=== PATIENT | female | born 1945 | race Caucasian/White ===

== ENCOUNTER 2021-05-05 16:23 | Emergency (ER) | payer MEDICARE, BC ==
--- NOTE | 2021-05-05 17:45 | EDM.PDOC ---
ED HPI GENERAL MEDICAL PROBLEM - General Chief Complaint: Neuro Symptoms/Deficits Stated Complaint: TROUBLE GETTING WORDS OUTS/LEG PAIN Time Seen by Provider: 05/05/21 17:24 Source of Information: Reports: Patient, Family (son), RN Notes Reviewed History Limitations: Reports: No Limitations - History of Present Illness INITIAL COMMENTS - FREE TEXT/NARRATIVE: Patient is a 76-year-old female who presents to the ER for the evaluation of her generalized confusion, and leg discomfort. Patient notes that for the last week or so, she has been having issues with trying to find words during conversation. She states that she lives alone, and was not necessarily aware this, until her niece come to visit, and noticed that her words were jumbled up a little bit. Patient does not think she has been around anyone has been sick again she states that she lives alone. Patient is not having any sort of fevers or chills, cough or shortness of breath, any sort of nausea/vomiting/diarrhea. At the time of triage, O2 sats on the low side of normal at 90 to 93% but she is not dyspneic by any means. Patient seems to know where she is at, and the time of the day and month. She is not having any urinary symptoms, again no fevers or chills that she is aware of. She is concerned about the possibility of having either stroke for other worsening etiology. The patient states that she has been having issue with bilateral swollen legs for some time as well, and these have been somewhat painful in the posterior aspect. States that her primary care provider is Candi Sellers. She was started on a new med recently, but she cannot member what the name of the med is. But she states she does not like it as it just makes her sleep. She did have a COVID-19 vaccine, sometime in November or December, and she got the [employer] version. - Related Data Allergies Allergy/AdvReac Type Severity Reaction Status Date / Time No Known Allergies Allergy Verified 05/05/21 16:57 Home Meds: Home Meds Cefdinir [Omnicef] 300 mg PO BID 7 Days #14 cap 05/05/21 [Rx] Diclofenac Sodium 75 mg PO BID 05/05/21 [History] Levothyroxine [Synthroid] 100 mcg PO ACBREAKFAST 05/05/21 [History] Metoprolol Succinate 25 mg PO BID 05/05/21 [History] lisinopriL [Lisinopril] 40 mg PO DAILY 05/05/21 [History] ED ROS GENERAL - Review of Systems Review Of Systems: Comprehensive ROS is negative, except as noted in HPI. ED EXAM, GENERAL - Physical Exam Exam: See Below Exam Limited By: No Limitations General Appearance: Alert, WD/WN, No Apparent Distress Eye Exam: Bilateral Eye: EOMI, Normal Inspection, PERRL Throat/Mouth: Normal Inspection, Normal Lips, Normal Teeth, Normal Gums, Normal Oropharynx, Normal Voice, No Airway Compromise Head: Atraumatic, Normocephalic Neck: Normal Inspection Respiratory/Chest: No Respiratory Distress, Lungs Clear, Normal Breath Sounds, No Accessory Muscle Use, Chest Non-Tender Cardiovascular: Normal Peripheral Pulses, Regular Rate, Rhythm, No Edema Peripheral Pulses: 2+: Radial (L), Radial (R) Extremities: Normal Inspection, Normal Capillary Refill Neurological: Alert, Oriented, Normal Cognition, No Motor/Sensory Deficits Psychiatric: Normal Affect, Normal Mood Skin Exam: Warm, Dry, Intact, Normal Color, No Rash #1 Interpretation EKG Date: 05/05/21 Time: 17:42 Rhythm: NSR Rate (Beats/Min): 54 [place]: LAD-Left [place] Deviation P-Wave: Present QRS: LBBB ST-T: Normal QT: Prolonged Comparison: No Change EKG Interpretation Comments: No obvious ischemia or acute ST changes noted, reviewed by myself and Dr. Marquez. Course - Vital Signs Last Recorded V/S: Last Vital Signs Temp 97 F 05/05/21 16:45 Pulse 65 05/05/21 16:45 Resp 16 05/05/21 16:45 BP 184/83 H 05/05/21 16:45 Pulse Ox 93 L 05/05/21 16:45 - Orders/Labs/Meds Orders: Active Orders 24 hr Category Date Time Status Head wo Cont [CT] Stat Exams 05/05/21 17:24 Ordered COVID-19/FLU A+B [MOLEC] Stat Lab 05/05/21 17:39 Ordered CULTURE URINE [MREF] Urgent Lab 05/05/21 19:01 Ordered cefTRIAXone [Rocephin] 2 gm Med 05/05/21 19:01 Ordered Sodium Chloride 0.9% [Normal Saline] 100 ml IV ONETIME Medication Orders Ceftriaxone Sodium 2 gm/ (Sodium Chloride) 100 mls @ 200 mls/hr IV ONETIME ONE Stop: 05/05/21 19:30 Last Admin: 05/05/21 19:15 Dose: 200 mls/hr Documented by: Labs: Laboratory Tests 05/05/21 05/05/21 05/05/21 Range/Units 17:49 17:49 17:49 WBC 6.24 (3.98-10.04) K/mm3 RBC 5.18 (3.98-5.22) M/mm3 Hgb 16.2 H (11.2-15.7) gm/dl Hct 47.2 H (34.1-44.9) % MCV 91.1 (79.4-94.8) fl MCH 31.3 (25.6-32.2) pg MCHC 34.3 (32.2-35.5) g/dl RDW Std Deviation 44.0 (36.4-46.3) fL Plt Count 238 (182-369) K/mm3 MPV 9.0 L (9.4-12.3) fl Neut % (Auto) 59.5 (34.0-71.1) % Lymph % (Auto) 28.0 (19.3-51.7) % [place] % (Auto) 10.4 (4.7-12.5) % Eos % (Auto) 1.9 (0.7-5.8) Baso % (Auto) 0.2 (0.1-1.2) % Neut # (Auto) 3.71 (1.56-6.13) K/mm3 Lymph # (Auto) 1.75 (1.18-3.74) K/mm3 [place] # (Auto) 0.65 H (0.24-0.36) K/mm3 Eos # (Auto) 0.12 (0.04-0.36) K/mm3 Baso # (Auto) 0.01 (0.01-0.08) K/mm3 PT 10.7 (9.7-12.0) SECONDS INR 1.00 APTT 27.9 (21.7-31.4) SECONDS Sodium 145 (136-145) mEq/L Potassium 4.0 (3.5-5.1) mEq/L Chloride 110 H (98-107) mEq/L Carbon Dioxide 27 (21-32) mEq/L Anion Gap 12.0 (5-15) BUN 22 H (7-18) mg/dL Creatinine 0.7 (0.55-1.02) mg/dL Est Cr Clr Drug Dosing 61.52 mL/min Estimated GFR (MDRD) > 60 (>60) mL/min BUN/Creatinine Ratio 31.4 H (14-18) Glucose 106 H (70-99) mg/dL Calcium 8.8 (8.5-10.1) mg/dL Magnesium 2.1 (1.8-2.4) mg/dL Total Bilirubin 0.7 (0.2-1.0) mg/dL AST 20 (15-37) U/L ALT 23 (14-59) U/L Alkaline Phosphatase 82 (46-116) U/L Troponin I < 0.017 (0.00-0.056) ng/mL NT-Pro-B Natriuret Pep (0-450) pg/mL Total Protein 6.6 (6.4-8.2) g/dl Albumin 3.5 (3.4-5.0) g/dl Globulin 3.1 gm/dL Albumin/Globulin Ratio 1.1 (1-2) TSH 3rd Generation (0.358-3.74) uIU/mL Urine Color (Yellow) Urine Appearance (Clear) Urine pH (5.0-8.0) Ur Specific [place] (1.005-1.030) Urine Protein (Negative) Urine Glucose (UA) (Negative) Urine Ketones (Negative) Urine Occult Blood (Negative) Urine Nitrite (Negative) Urine Bilirubin (Negative) Urine Urobilinogen (0.2-1.0) Ur Leukocyte Esterase (Negative) Urine RBC (0-5) /hpf Urine WBC (0-5) /hpf Ur Squamous Epith Cells (0-5) /hpf Urine Bacteria (FEW) /hpf Urine Mucus (FEW) /hpf SARS-CoV-2 RNA (CARLOS) (NEGATIVE) 05/05/21 05/05/21 05/05/21 Range/Units 17:49 17:49 17:53 WBC (3.98-10.04) K/mm3 RBC (3.98-5.22) M/mm3 Hgb (11.2-15.7) gm/dl Hct (34.1-44.9) % MCV (79.4-94.8) fl MCH (25.6-32.2) pg MCHC (32.2-35.5) g/dl RDW Std Deviation (36.4-46.3) fL Plt Count (182-369) K/mm3 MPV (9.4-12.3) fl Neut % (Auto) (34.0-71.1) % Lymph % (Auto) (19.3-51.7) % [place] % (Auto) (4.7-12.5) % Eos % (Auto) (0.7-5.8) Baso % (Auto) (0.1-1.2) % Neut # (Auto) (1.56-6.13) K/mm3 Lymph # (Auto) (1.18-3.74) K/mm3 [place] # (Auto) (0.24-0.36) K/mm3 Eos # (Auto) (0.04-0.36) K/mm3 Baso # (Auto) (0.01-0.08) K/mm3 PT (9.7-12.0) SECONDS INR APTT (21.7-31.4) SECONDS Sodium (136-145) mEq/L Potassium (3.5-5.1) mEq/L Chloride (98-107) mEq/L Carbon Dioxide (21-32) mEq/L Anion Gap (5-15) BUN (7-18) mg/dL Creatinine (0.55-1.02) mg/dL Est Cr Clr Drug Dosing mL/min Estimated GFR (MDRD) (>60) mL/min BUN/Creatinine Ratio (14-18) Glucose (70-99) mg/dL Calcium (8.5-10.1) mg/dL Magnesium (1.8-2.4) mg/dL Total Bilirubin (0.2-1.0) mg/dL AST (15-37) U/L ALT (14-59) U/L Alkaline Phosphatase (46-116) U/L Troponin I (0.00-0.056) ng/mL NT-Pro-B Natriuret Pep 427 (0-450) pg/mL Total Protein (6.4-8.2) g/dl Albumin (3.4-5.0) g/dl Globulin gm/dL Albumin/Globulin Ratio (1-2) TSH 3rd Generation 0.563 (0.358-3.74) uIU/mL Urine Color (Yellow) Urine Appearance (Clear) Urine pH (5.0-8.0) Ur Specific [place] (1.005-1.030) Urine Protein (Negative) Urine Glucose (UA) (Negative) Urine Ketones (Negative) Urine Occult Blood (Negative) Urine Nitrite (Negative) Urine Bilirubin (Negative) Urine Urobilinogen (0.2-1.0) Ur Leukocyte Esterase (Negative) Urine RBC (0-5) /hpf Urine WBC (0-5) /hpf Ur Squamous Epith Cells (0-5) /hpf Urine Bacteria (FEW) /hpf Urine Mucus (FEW) /hpf SARS-CoV-2 RNA (CARLOS) Negative (NEGATIVE) 05/05/21 Range/Units 18:28 WBC (3.98-10.04) K/mm3 RBC (3.98-5.22) M/mm3 Hgb (11.2-15.7) gm/dl Hct (34.1-44.9) % MCV (79.4-94.8) fl MCH (25.6-32.2) pg MCHC (32.2-35.5) g/dl RDW Std Deviation (36.4-46.3) fL Plt Count (182-369) K/mm3 MPV (9.4-12.3) fl Neut % (Auto) (34.0-71.1) % Lymph % (Auto) (19.3-51.7) % [place] % (Auto) (4.7-12.5) % Eos % (Auto) (0.7-5.8) Baso % (Auto) (0.1-1.2) % Neut # (Auto) (1.56-6.13) K/mm3 Lymph # (Auto) (1.18-3.74) K/mm3 [place] # (Auto) (0.24-0.36) K/mm3 Eos # (Auto) (0.04-0.36) K/mm3 Baso # (Auto) (0.01-0.08) K/mm3 PT (9.7-12.0) SECONDS INR APTT (21.7-31.4) SECONDS Sodium (136-145) mEq/L Potassium (3.5-5.1) mEq/L Chloride (98-107) mEq/L Carbon Dioxide (21-32) mEq/L Anion Gap (5-15) BUN (7-18) mg/dL Creatinine (0.55-1.02) mg/dL Est Cr Clr Drug Dosing mL/min Estimated GFR (MDRD) (>60) mL/min BUN/Creatinine Ratio (14-18) Glucose (70-99) mg/dL Calcium (8.5-10.1) mg/dL Magnesium (1.8-2.4) mg/dL Total Bilirubin (0.2-1.0) mg/dL AST (15-37) U/L ALT (14-59) U/L Alkaline Phosphatase (46-116) U/L Troponin I (0.00-0.056) ng/mL NT-Pro-B Natriuret Pep (0-450) pg/mL Total Protein (6.4-8.2) g/dl Albumin (3.4-5.0) g/dl Globulin gm/dL Albumin/Globulin Ratio (1-2) TSH 3rd Generation (0.358-3.74) uIU/mL Urine Color Yellow (Yellow) Urine Appearance Slt cloudy H (Clear) Urine pH 6.0 (5.0-8.0) Ur Specific [place] > or = 1.030 (1.005-1.030) Urine Protein Negative (Negative) Urine Glucose (UA) Negative (Negative) Urine Ketones 2+ H (Negative) Urine Occult Blood Negative (Negative) Urine Nitrite Negative (Negative) Urine Bilirubin 1+ H (Negative) Urine Urobilinogen 4.0 H (0.2-1.0) Ur Leukocyte Esterase 1+ H (Negative) Urine RBC 0-5 (0-5) /hpf Urine WBC 20-30 H (0-5) /hpf Ur Squamous Epith Cells 10-20 H (0-5) /hpf Urine Bacteria Moderate H (FEW) /hpf Urine Mucus Moderate H (FEW) /hpf SARS-CoV-2 RNA (CARLOS) (NEGATIVE) Meds: Medications Generic Name Dose Route Start Last Admin Trade Name Freq PRN Reason Stop Dose Admin Ceftriaxone Sodium 2 gm/ 100 mls @ 200 mls/hr 05/05/21 19:01 05/05/21 19:15 Sodium Chloride IV 05/05/21 19:30 200 mls/hr ONETIME ONE Administration - Re-Assessments/Exams Free Text/Narrative Re-Assessment/Exam: 05/05/21 17:44 Patient presents to the ER for the evaluation of her increased confusion and leg pain. She has a multitude of symptoms that are pretty nonfocal. We will go ahead get a head CT without contrast for evaluation of a possible stroke earlier this week. We will get basic labs, EKG, and a Covid swab for ongoing management. 05/05/21 19:[address] demonstrates normal degenerative change but no sign of a stroke. Laboratory evaluation demonstrates a urinalysis that is positive for UTI at this time, we will go ahead and give her 2 g Rocephin, and started on some oral Omnicef for ongoing management. White cell count, and metabolic panel is essentially unremarkable. COVID-19 screen was negative. Departure - Departure Time of Disposition: 19:22 Disposition: Home, Self-Care 01 Condition: Good Clinical Impression: UTI (urinary tract infection) Qualifiers: Urinary tract infection type: acute cystitis Hematuria presence: without hematuria Qualified Code(s): N30.00 - Acute cystitis without hematuria - Discharge Information *PRESCRIPTION DRUG MONITORING PROGRAM REVIEWED*: No *COPY OF PRESCRIPTION DRUG MONITORING REPORT IN PATIENT GAEL: No Prescriptions: Cefdinir [Omnicef] 300 mg PO BID 7 Days #14 cap Instructions: Urinary Tract Infection, Adult, [id number] Referrals: Candi Sellers NP [Primary Care Provider] - Forms: ED Department Discharge Additional Instructions: You have been evaluated in the ED for your urinary symptoms. Your urinalysis was consistent with an acute urinary tract infection. Your urine was sent for culture, and you will be notified if you should need a change in your antibiotic. This may take up to 48 hours to result. You have been given a prescription for Omnicef (cefdinir), 300 mg 1 tablet 2 times a day for 7 days. Please note that the antibiotics can take up to 48 hours to start working. This medication was electronically sent to the [facility] pharmacy located on [place]. You were given your first dose of IV antibiotic in the ER, to help start fighting off the UTI symptoms. Please increase your oral fluid intake and try to stay adequately hydrated. Please return to the ED if your symptoms change or worsen. Sepsis Event Note (ED) - Focused Exam Vital Signs: Vital Signs Temp Pulse Resp BP Pulse Ox 05/05/21 16:45 97 F 65 16 184/83 H 93 L - My Orders Last 24 Hours: My Active Orders 05/05/21 17:24 Head wo Cont [CT] Stat 05/05/21 17:39 COVID-19/FLU A+B [MOLEC] Stat 05/05/21 19:01 CULTURE URINE [MREF] Urgent cefTRIAXone [Rocephin] 2 gm Sodium Chloride 0.9% [Normal Saline] 100 ml IV ONETIME - Assessment/Plan Last 24 Hours: My Active Orders 05/05/21 17:24 Head wo Cont [CT] Stat 05/05/21 17:39 COVID-19/FLU A+B [MOLEC] Stat 05/05/21 19:01 CULTURE URINE [MREF] Urgent cefTRIAXone [Rocephin] 2 gm Sodium Chloride 0.9% [Normal Saline] 100 ml IV ONETIME
[2021-05-05 18:50] LABS: CORONAVIRUS COVID-19 NAA NEGATIVE (NEGATIVE)
[2021-05-05] MEDS ORDERED: cefTRIAXone 2 GM in Sodium Chloride 0.9% 100 ML IV ONE (19:01)
--- NOTE | 2021-05-05 20:14 | CT ---
Head CT Technique: Multiple axial sections through the brain were obtained. Intravenous contrast was not utilized. Reconstructed coronal and sagittal images were obtained. Comparison: No prior intracranial imaging is available. Findings: Ventricles along with basal cisterns and sulci over the convexities are moderately prominent. Very minimal diminished density is seen within portions of the periventricular white matter compatible with small vessel ischemic demyelination change. Atrophy is also noted within the cerebellum. No midline shift or mass-effect is seen. Mild atherosclerotic calcification is seen within the carotid siphon. Visualized mastoid sinuses and paranasal sinuses show nothing acute. No acute calvarial abnormality is seen. Impression: 1. Senescent change as noted above. 2. No acute intracranial abnormality is seen. Diagnostic code #2 I agree with preliminary report from [facility], finalized on 05/05/21, 7:38 PM CDT, code 1
== END 2021-05-05 20:16 | disposition home or self-care (01) ==
LOC: JD.ED 16:23
DX: N30.00 Acute cystitis without hematuria (principal); I44.7 Left bundle-branch block, unspecified; Z79.899 Other long term (current) drug therapy; Z20.822 Contact with and (suspected) exposure to COVID-19; M79.606 Pain in leg, unspecified
CPT/HCPCS: 0240U; 36415; 70450; 80053; 81001; 83735; 83880; 84443; 84484; 85025; 85610; 85730; 87086; 93005; 96365; 99285; J0696; 93010; 99284

== ENCOUNTER 2021-12-03 19:35 | Inpatient (IN) | payer MEDICARE, BC ==
[2021-12-03] MEDS ORDERED: Adenosine 6 MG/2 ML SDV ONE (19:49)
[2021-12-03] MEDS ORDERED: Adenosine 6 MG/2 ML SDV IVPUSH ONE ×2 (19:59→20:01)
[2021-12-03] MEDS ORDERED: Diltiazem 50 MG/10 ML SDV ONE (20:02)
[2021-12-03] MEDS ORDERED: Lactated Ringers 1,000 ML IV ONE (20:03)
[2021-12-03] MEDS ORDERED: Aspirin 81 MG Tab.Chew PO ONE (20:05)
[2021-12-03] MEDS ORDERED: Diltiazem 50 MG/10 ML SDV IVPUSH ONE (20:05)
[2021-12-03] MEDS: Adenosine 12 MG/4 ML SDV ONE ×2 (20:11→20:12)
[2021-12-03] MEDS: Diltiazem 100 MG in Sodium Chloride 0.9% 100 ML IV SCH (20:25)
[2021-12-03] MEDS ORDERED: Potassium Chloride 20 MEQ Tab.ER PO ONE (22:49)
[2021-12-03] MEDS ORDERED: Magnesium Sulfate/Water 2 GM in Premix Bag 1 BAG IV ONE (22:49)
[2021-12-03] MEDS ORDERED: Metoprolol Tartrate 25 MG Tab PO ONE (22:50)
[2021-12-04] MEDS: Diltiazem 100 MG in Sodium Chloride 0.9% 100 ML IV SCH ×2 (00:42→02:23)
[2021-12-04] MEDS ORDERED: Acetaminophen 325 MG Tab PO PRN (01:21)
[2021-12-04] MEDS ORDERED: Potassium Bicarbonate/Cit Ac 20 MEQ Effervescent Tab PO SCH (01:45)
[2021-12-04] MEDS: Dextrose 5%-0.45% NaCl 1,000 ML IV SCH ×2 (02:02→16:40)
[2021-12-04 03:17] LABS: HEMOGLOBIN A1C 5.2 %
[2021-12-04] MEDS: Levothyroxine 100 MCG Tab PO SCH (06:32)
[2021-12-04] MEDS: Enoxaparin 40 MG/0.4 ML Syringe SUBCUT SCH (09:48)
[2021-12-04] MEDS: oxyCODONE 5 MG Tab PO PRN (20:40)
[2021-12-04] MEDS: Simvastatin 20 MG Tab PO SCH (20:40)
[2021-12-05] MEDS: Levothyroxine 100 MCG Tab PO SCH (05:44)
[2021-12-05] MEDS: Enoxaparin 40 MG/0.4 ML Syringe SUBCUT SCH (07:59)
[2021-12-05] MEDS: Diltiazem 100 MG in Sodium Chloride 0.9% 100 ML IV SCH (09:05)
[2021-12-05] MEDS ORDERED: Adenosine 6 MG/2 ML SDV IVPUSH ONE ×2 (09:19→09:31)
[2021-12-05] MEDS ORDERED: Midazolam 1 MG/ML 2 ML SDV ONE (10:08)
[2021-12-05] MEDS ORDERED: fentaNYL 100 MCG/2 ML SDV ONE (10:09)
[2021-12-05] MEDS ORDERED: Sodium Chloride 0.9% 500 ML ONE (10:15)
[2021-12-05] MEDS ORDERED: Ketamine 500 mg/10 ML MDV ONE (11:00)
[2021-12-05] MEDS: Labetalol 100 MG/20 ML MDV IVPUSH PRN ×2 (16:44→21:00)
[2021-12-05] MEDS: oxyCODONE 5 MG Tab PO PRN (21:04)
[2021-12-05] MEDS: Simvastatin 20 MG Tab PO SCH (21:04)
[2021-12-06] MEDS: Labetalol 100 MG/20 ML MDV IVPUSH PRN (01:11)
[2021-12-06] MEDS: oxyCODONE 5 MG Tab PO PRN ×2 (03:14→20:31)
[2021-12-06] MEDS: Levothyroxine 100 MCG Tab PO SCH (06:28)
[2021-12-06] MEDS: Enoxaparin 40 MG/0.4 ML Syringe SUBCUT SCH (08:03)
[2021-12-06] MEDS ORDERED: Metoprolol Succinate 25 MG Tab.ER PO SCH (09:00)
[2021-12-06] MEDS ORDERED: Sodium Chloride 0.9% 500 ML IV ONE (12:26)
[2021-12-06] MEDS ORDERED: Sodium Chloride 0.9% 1,000 ML ONE (12:28)
[2021-12-06] MEDS: Simvastatin 20 MG Tab PO SCH (20:30)
[2021-12-07] MEDS: Levothyroxine 100 MCG Tab PO SCH (05:46)
[2021-12-07] MEDS ORDERED: Labetalol 100 MG/20 ML MDV IVPUSH ONE (08:34)
[2021-12-07] MEDS: Enoxaparin 40 MG/0.4 ML Syringe SUBCUT SCH (08:46)
[2021-12-07] MEDS ORDERED: Metoprolol Succinate 25 MG Tab.ER PO ONE (11:00)
[2021-12-07] MEDS: Amiodarone 200 MG Tab PO SCH (15:43)
[2021-12-07 16:18] LABS: HEMOGLOBIN A1C 5.4 %
[2021-12-07] MEDS: Simvastatin 20 MG Tab PO SCH (20:14)
[2021-12-07] MEDS: Potassium Chloride 20 MEQ Tab.ER PO SCH (20:14)
[2021-12-07] MEDS: oxyCODONE 5 MG Tab PO PRN (21:26)
[2021-12-08] MEDS: Levothyroxine 100 MCG Tab PO SCH (05:13)
[2021-12-08] MEDS ORDERED: Rivaroxaban 10 MG Tab PO SCH ×2 (09:00)
[2021-12-08] MEDS ORDERED: Metoprolol Tartrate 25 MG Tab PO SCH (09:00)
[2021-12-08] MEDS: Potassium Chloride 20 MEQ Tab.ER PO SCH (09:27)
[2021-12-08] MEDS: Amiodarone 200 MG Tab PO SCH (09:27)
== END 2021-12-08 16:28 | disposition home health service (06) | DRG 310 ==
LOC: JD.ED 19:35 → JD.ICU 12-04 00:08
PROVIDERS: ADMIT Pediatrics; ATTEND Pediatrics
DX: I63.81 Other cerebral infarction due to occlusion or stenosis of small artery (principal); I48.91 Unspecified atrial fibrillation; I44.7 Left bundle-branch block, unspecified; I49.3 Ventricular premature depolarization; Z66 Do not resuscitate; E87.6 Hypokalemia; Z79.82 Long term (current) use of aspirin; G89.29 Other chronic pain; M54.9 Dorsalgia, unspecified; G47.00 Insomnia, unspecified; R77.8 Other specified abnormalities of plasma proteins; E66.9 Obesity, unspecified; E78.00 Pure hypercholesterolemia, unspecified; I10 Essential (primary) hypertension; E03.9 Hypothyroidism, unspecified; M54.59 Other low back pain; Z79.899 Other long term (current) drug therapy; Z79.890 Hormone replacement therapy; Z79.01 Long term (current) use of anticoagulants; Z98.49 Cataract extraction status, unspecified eye; W19.XXXA Unspecified fall, initial encounter; Y92.009 Unspecified place in unspecified non-institutional (private) residence as the place of occurrence of the external cause
CPT/HCPCS: 36415; 70450; 71045; 80053; 83735; 84443; 84484 ×2; 85025; 85379; 85610; 85730; 93005 ×3; A9270 ×3; J0153; J3475; J3490 ×2; J7120; 51701; 51702; 51798; 70551; 70551-26; 80048; 80061; 81001; 82947; 83036; 83880; 84550; 85652; 86140; 87040; 87086; 93010; 93306; 96365; 96366; 96375; 96376; 97110-GP; 97116-GP; 97161-GP; 97530-GP; 99285; 99285-25; J0282; J1650; J2250; J7030; J7040; J7042

== ENCOUNTER 2022-03-19 11:00 | Inpatient (IN) | payer MEDICARE, BC ==
[2022-03-19] MEDS: Sodium Chloride 0.9% 10 ML Syringe FLUSH PRN ×2 (13:13→20:55)
[2022-03-19 14:23] LABS: CORONAVIRUS COVID-19 NAA POSITIVE (NEGATIVE)
[2022-03-19] MEDS ORDERED: Furosemide 40 MG/4 ML VIAL IVPUSH ONE (15:29)
[2022-03-19] MEDS ORDERED: Dexamethasone 10 MG/ML SDV IVPUSH ONE (15:38)
[2022-03-19] MEDS ORDERED: cefTRIAXone 2 GM in Sodium Chloride 0.9% 100 ML IV ONE (15:42)
[2022-03-19] MEDS ORDERED: Furosemide 40 MG/4 ML VIAL ONE (17:48)
[2022-03-19] MEDS ORDERED: Dexamethasone 4 MG/ML SDV ONE (17:48)
[2022-03-19] MEDS ORDERED: Albuterol 0.042% 1.25 MG/3 ML Neb Soln NEB PRN (18:48)
[2022-03-19] MEDS ORDERED: Acetaminophen 325 MG Tab PO PRN (18:51)
[2022-03-19] MEDS: Albuterol/Ipratropium 3.0-0.5 MG/3 ML Neb Soln NEB SCH (20:03)
[2022-03-19] MEDS: Azithromycin 500 MG in Sodium Chloride 0.9% 250 ML IV SCH (20:56)
[2022-03-19] MEDS: Pantoprazole 40 MG Tab.CR PO SCH (21:00)
[2022-03-19] MEDS: Naproxen 500 MG Tab PO SCH (21:00)
[2022-03-19] MEDS ORDERED: Doxycycline 100 MG in Sodium Chloride 0.9% 100 ML IV SCH (21:00)
[2022-03-19] MEDS: guaiFENesin 600 MG Tab.ER PO SCH (21:00)
[2022-03-19] MEDS: Rivaroxaban 10 MG Tab PO SCH (21:01)
[2022-03-19] MEDS: Metoprolol Tartrate 25 MG Tab PO SCH (21:02)
[2022-03-20] MEDS: Levothyroxine 100 MCG Tab PO SCH (05:19)
[2022-03-20] MEDS: Albuterol/Ipratropium 3.0-0.5 MG/3 ML Neb Soln NEB SCH ×3 (06:19→20:48)
[2022-03-20] MEDS: Dexamethasone 4 MG Tab PO SCH (10:28)
[2022-03-20] MEDS: Rivaroxaban 10 MG Tab PO SCH (10:28)
[2022-03-20] MEDS: Naproxen 500 MG Tab PO SCH ×2 (10:28→20:45)
[2022-03-20] MEDS: Amiodarone 200 MG Tab PO SCH (10:28)
[2022-03-20] MEDS: guaiFENesin 600 MG Tab.ER PO SCH ×2 (10:28→20:45)
[2022-03-20] MEDS: Metoprolol Tartrate 25 MG Tab PO SCH ×2 (10:29→20:46)
[2022-03-20] MEDS ORDERED: cefTRIAXone 2 GM in Sodium Chloride 0.9% 100 ML IV SCH (15:00)
[2022-03-20] MEDS: cefTRIAXone 2 GM in Sodium Chloride 0.9% 100 ML IV SCH (15:23)
[2022-03-20] MEDS: Pantoprazole 40 MG Tab.CR PO SCH (20:46)
[2022-03-20] MEDS: Azithromycin 500 MG in Sodium Chloride 0.9% 250 ML IV SCH (20:50)
[2022-03-20] MEDS: Sodium Chloride 0.9% 10 ML Syringe FLUSH PRN (20:51)
[2022-03-21] MEDS: Levothyroxine 100 MCG Tab PO SCH (05:38)
[2022-03-21] MEDS: Albuterol/Ipratropium 3.0-0.5 MG/3 ML Neb Soln NEB SCH ×3 (06:15→20:29)
[2022-03-21] MEDS: Amiodarone 200 MG Tab PO SCH (09:58)
[2022-03-21] MEDS: Naproxen 500 MG Tab PO SCH ×2 (09:58→21:03)
[2022-03-21] MEDS: Multivitamin Tab PO SCH (09:59)
[2022-03-21] MEDS: Rivaroxaban 10 MG Tab PO SCH (09:59)
[2022-03-21] MEDS: guaiFENesin 600 MG Tab.ER PO SCH ×2 (09:59→21:03)
[2022-03-21] MEDS: Metoprolol Tartrate 25 MG Tab PO SCH ×2 (10:00→21:03)
[2022-03-21] MEDS: Fluticasone NASAL Spray 16 GM Bottle NASBOTH SCH (10:01)
[2022-03-21] MEDS: Dexamethasone 4 MG Tab PO SCH (10:01)
[2022-03-21] MEDS: cefTRIAXone 2 GM in Sodium Chloride 0.9% 100 ML IV SCH (15:10)
[2022-03-21] MEDS: Azithromycin 500 MG in Sodium Chloride 0.9% 250 ML IV SCH (21:02)
[2022-03-21] MEDS: Pantoprazole 40 MG Tab.CR PO SCH (21:03)
[2022-03-22] MEDS: Albuterol/Ipratropium 3.0-0.5 MG/3 ML Neb Soln NEB SCH ×3 (06:17→20:36)
[2022-03-22] MEDS: Levothyroxine 100 MCG Tab PO SCH (06:18)
[2022-03-22] MEDS: Amiodarone 200 MG Tab PO SCH (08:15)
[2022-03-22] MEDS: Dexamethasone 4 MG Tab PO SCH (08:16)
[2022-03-22] MEDS: guaiFENesin 600 MG Tab.ER PO SCH ×2 (08:16→21:23)
[2022-03-22] MEDS: Multivitamin Tab PO SCH (08:17)
[2022-03-22] MEDS: Metoprolol Tartrate 25 MG Tab PO SCH ×2 (08:17→21:23)
[2022-03-22] MEDS: Rivaroxaban 10 MG Tab PO SCH (08:18)
[2022-03-22] MEDS: Fluticasone NASAL Spray 16 GM Bottle NASBOTH SCH (08:55)
[2022-03-22] MEDS: Naproxen 500 MG Tab PO PRN ×2 (11:15→22:47)
[2022-03-22] MEDS: cefTRIAXone 2 GM in Sodium Chloride 0.9% 100 ML IV SCH (15:31)
[2022-03-22] MEDS ORDERED: Sertraline 25 MG Tab PO SCH (21:00)
[2022-03-22] MEDS: Pantoprazole 40 MG Tab.CR PO SCH (21:23)
[2022-03-22] MEDS: Azithromycin 500 MG in Sodium Chloride 0.9% 250 ML IV SCH (21:29)
[2022-03-23] MEDS: Albuterol/Ipratropium 3.0-0.5 MG/3 ML Neb Soln NEB SCH ×2 (05:59→15:09)
[2022-03-23] MEDS: Levothyroxine 100 MCG Tab PO SCH (06:25)
[2022-03-23] MEDS: Amiodarone 200 MG Tab PO SCH (09:37)
[2022-03-23] MEDS: Multivitamin Tab PO SCH (09:37)
[2022-03-23] MEDS: guaiFENesin 600 MG Tab.ER PO SCH (09:37)
[2022-03-23] MEDS: Rivaroxaban 10 MG Tab PO SCH (09:37)
[2022-03-23] MEDS: Dexamethasone 4 MG Tab PO SCH (09:38)
[2022-03-23] MEDS: Fluticasone NASAL Spray 16 GM Bottle NASBOTH SCH (09:39)
[2022-03-23] MEDS: Metoprolol Tartrate 25 MG Tab PO SCH (09:41)
[2022-03-23] MEDS: cefTRIAXone 2 GM in Sodium Chloride 0.9% 100 ML IV SCH (14:48)
[2022-03-24] MEDS ORDERED: Metoprolol Tartrate 25 MG Tab PO SCH (09:00)
[2022-03-24] MEDS ORDERED: Rivaroxaban 10 MG Tab PO SCH (09:00)
== END 2022-03-23 15:32 | disposition home or self-care (01) | DRG 177 ==
LOC: JD.ED 11:00 → JD.ICU 18:02
PROVIDERS: ADMIT Internal Medicine Cardiovascular Disease; ATTEND Pediatrics
PROC: 8E0ZXY6 Isolation (ICD-10-PCS; principal; 2022-03-19)
PROC: 3E0333Z Introduction of Anti-inflammatory into Peripheral Vein, Percutaneous Approach (ICD-10-PCS; principal; 2022-03-19)
DX: U07.1 COVID-19 (principal); I63.81 Other cerebral infarction due to occlusion or stenosis of small artery; J15.7 Pneumonia due to Mycoplasma pneumoniae; I10 Essential (primary) hypertension; J12.82 Pneumonia due to coronavirus disease 2019; E78.00 Pure hypercholesterolemia, unspecified; J96.01 Acute respiratory failure with hypoxia; Z79.890 Hormone replacement therapy; N30.00 Acute cystitis without hematuria; J44.0 Chronic obstructive pulmonary disease with (acute) lower respiratory infection; I50.32 Chronic diastolic (congestive) heart failure; E78.5 Hyperlipidemia, unspecified; I48.0 Paroxysmal atrial fibrillation; R77.8 Other specified abnormalities of plasma proteins; I11.0 Hypertensive heart disease with heart failure; F41.9 Anxiety disorder, unspecified; E03.9 Hypothyroidism, unspecified; I48.91 Unspecified atrial fibrillation; Z79.899 Other long term (current) drug therapy; Z79.52 Long term (current) use of systemic steroids; Z79.1 Long term (current) use of non-steroidal anti-inflammatories (NSAID); Z98.42 Cataract extraction status, left eye; Z98.41 Cataract extraction status, right eye; Z79.01 Long term (current) use of anticoagulants
CPT/HCPCS: 0240U; 36415; 71045; 71046; 80048; 80053; 81001; 83605; 83735; 83880; 84145; 84484; 85007; 85025; 85027; 86140; 86738; 87040; 92523; 93005; 93306; 94640; 96374; 96375; 99285; 93010; 99284; A9270-GY; J0456; J0696; J1100; J1940; J3490; J7050; J7620-GY; J8540

== ENCOUNTER 2023-05-25 00:26 | Inpatient (IN) | payer MEDICARE, BC ==
[2023-05-25 01:39] LABS: HEMATOCRIT 45.1 % (37.0-47.0); HEMOGLOBIN 15.7 gm/dl (12.0-16.0); MEAN CORPUSCULAR HEMOGLOBIN 33.8 pg (28.0-32.0); MEAN CORPUSCULAR HGB CONC 34.8 g/dl (32.0-36.0); MEAN PLATELET VOLUME 9.1 fl (9.4-12.3); PLATELET COUNT,PLT 226 K/mm3 (150-400); RED BLOOD CELL COUNT 4.65 M/mm3 (4.10-5.30); WHITE BLOOD CELL COUNT,WBC 9.64 K/mm3 (3.9-11.3)
[2023-05-25 02:22] LABS: A/G RATIO 0.9 (1-2); ALANINE AMINOTRANSFERASE,ALT 15 U/L (14-59); ALBUMIN 3.2 g/dl (3.4-5.0); ALKALINE PHOSPHATASE 80 U/L (46-116); ANION GAP 11.1 (5-15); ASPARTATE AMNIOTRANSFERASE,AST 25 U/L (15-37); BILIRUBIN TOTAL 1.6 mg/dL (0.2-1.0); BLOOD UREA NITROGEN,BUN 20 mg/dL (7-18); BUN/CREATININE RATIO 22.2 (14-18); CARBON DIOXIDE,CO2 29 mEq/L (21-32); CHLORIDE,CL 105 mEq/L (98-107); CREATININE 0.9 mg/dL (0.55-1.02); ESTIMATED GFR 65 mL/min (>60); GLUCOSE RANDOM 147 mg/dL (70-99); POTASSIUM,K 4.1 mEq/L (3.5-5.1); PROTEIN TOTAL,TP 6.8 g/dl (6.4-8.2); SODIUM,NA 141 mEq/L (136-145); TROPONIN I HIGH SENSITIVITY 23 pg/mL (<=51)
[2023-05-25 02:38] LABS: BAND PERCENT MAN 6 % (0-10); BASOPHILS PERCENT MAN 0 (0.1-1.2); EOSINOPHILS PERCENT MAN 0 % (0.7-5.8); LYMPHOCYTES % ATYPICAL MANUAL 0 %; LYMPHOCYTES PERCENT MAN 8 % (20-40); MONOCYTES PERCENT MAN 11 % (2-10)
[2023-05-25 02:40] LABS: PLATELET COUNT ESTIMATE ADEQUATE
[2023-05-25 02:47] LABS: C-REACTIVE PROTEIN 20.1 mg/dL (<1.0)
[2023-05-25 07:25] LABS: APPEARANCE,URINE CLEAR (Clear); BILIRUBIN,URINE NEGATIVE (Negative); COLOR,URINE DARK YELLOW (Yellow); GLUCOSE,URINE NEGATIVE (Negative); KETONES,URINE 2+ (Negative); LEUKOCYTE ESTERASE,URINE NEGATIVE (Negative); NITRITE,URINE NEGATIVE (Negative); OCCULT BLOOD,URINE NEGATIVE (Negative); PH,URINE 5.5 (5.0-8.0); PROTEIN,URINE TRACE (Negative); UROBILINOGEN,URINE 0.2 (0.2-1.0)
[2023-05-25 07:31] LABS: BACTERIA,URINE FEW /hpf (FEW); MUCUS,URINE MODERATE /hpf (FEW); RBC,URINE 0-5 /hpf (0-5); WBC,URINE 0-5 /hpf (0-5)
[2023-05-25] MEDS ORDERED: Levothyroxine 100 MCG Tab PO SCH (09:00)
[2023-05-25] MEDS ORDERED: Ondansetron 4 MG/2 ML SDV IV PRN (10:08)
[2023-05-25] MEDS ORDERED: Docusate Sodium 100 MG Cap PO PRN (10:08)
[2023-05-25] MEDS ORDERED: oxyCODONE 5 MG Tab PO PRN (10:08)
[2023-05-25] MEDS ORDERED: Albuterol 0.083% 2.5 MG/3 ML Neb Soln NEB PRN (10:08)
[2023-05-25] MEDS ORDERED: Sodium Chloride 0.9% 10 ML Syringe FLUSH PRN (10:08)
[2023-05-25] MEDS ORDERED: Albuterol/Ipratropium 3.0-0.5 MG/3 ML Neb Soln NEB PRN (10:08)
[2023-05-25] MEDS ORDERED: Amiodarone 200 MG Tab PO SCH (10:15)
[2023-05-25] MEDS ORDERED: Lisinopril 20 MG Tab PO SCH (10:15)
[2023-05-25] MEDS ORDERED: Metoprolol Tartrate 25 MG Tab PO SCH ×2 (10:15→11:45)
[2023-05-25] MEDS ORDERED: Rivaroxaban 10 MG Tab PO SCH (10:15)
[2023-05-25] MEDS ORDERED: Amiodarone 200 MG Tab **PTOM PO SCH (11:45)
[2023-05-25] MEDS ORDERED: LISINOPRIL 40 MG PO SCH (11:45)
[2023-05-25] MEDS: Metoprolol Tartrate 25 MG Tab **PTOM PO SCH ×2 (12:12→21:10)
[2023-05-25] MEDS ORDERED: XARELTO 20 MG PO SCH (18:00)
[2023-05-25 19:42] LABS: BORDETELLA PARAPERT IS1001 Not Detected (Not Detected)
[2023-05-25] MEDS ORDERED: SIMVASTATIN 20 MG PO SCH (21:00)
[2023-05-25] MEDS ORDERED: atorvaSTATin 20 MG Tab PO SCH (21:00)
[2023-05-25] MEDS: Sodium Chloride 0.9% 10 ML Syringe FLUSH SCH (21:11)
[2023-05-26] MEDS ORDERED: Levothyroxine 100 MCG Tab PO SCH (06:00)
[2023-05-26] MEDS ORDERED: Levothyroxine 25 MCG Tab PO SCH (06:00)
[2023-05-26] MEDS ORDERED: methylPREDNISolone Sodium Succinate 125 MG/2 ML SDV IVPUSH ONE (08:11)
[2023-05-26] MEDS ORDERED: Lisinopril 20 MG Tab PO SCH (08:34)
[2023-05-26] MEDS: amLODIPine 5 MG Tab PO SCH (08:59)
[2023-05-26] MEDS: Levothyroxine 100 MCG Tab PO SCH (08:59)
[2023-05-26] MEDS: Amiodarone 200 MG Tab PO SCH (09:00)
[2023-05-26] MEDS ORDERED: amLODIPine 5 MG Tab **PTOM PO SCH (09:00)
[2023-05-26] MEDS ORDERED: amLODIPine 5 MG Tab PO SCH (09:00)
[2023-05-26] MEDS: Metoprolol Tartrate 25 MG Tab PO SCH ×2 (09:01→20:48)
[2023-05-26] MEDS: Lisinopril 20 MG Tab PO SCH (09:02)
[2023-05-26] MEDS: Doxycycline 100 MG in Sodium Chloride 0.9% 100 ML IV SCH ×2 (09:08→20:49)
[2023-05-26] MEDS: Sodium Chloride 0.9% 10 ML Syringe FLUSH SCH ×2 (09:13→22:00)
[2023-05-26] MEDS: Rivaroxaban 10 MG Tab PO SCH (17:41)
[2023-05-26] MEDS: atorvaSTATin 20 MG Tab PO SCH (20:49)
[2023-05-27 05:33] LABS: BASOPHILS PERCENT AUTO 0.1 % (0.0-1.0); HEMATOCRIT 42.1 % (37.0-47.0); HEMOGLOBIN 14.7 gm/dl (12.0-16.0); IMMATURE GRAN ABSOLUTE AUTO 0.07 K/mm3 (0.00-0.05); IMMATURE GRAN PERCENT AUTO 0.8 % (0.0-0.4); LYMPHOCYTES ABSOLUTE AUTO 0.8 K/mm3 (1.0-4.8); MEAN CORPUSCULAR HEMOGLOBIN 33.8 pg (28.0-32.0); MEAN CORPUSCULAR HGB CONC 34.9 g/dl (32.0-36.0); MEAN CORPUSCULAR VOLUME 96.8 fl (83.0-99.0); MEAN PLATELET VOLUME 9.7 fl (9.4-12.3); MONOCYTES ABSOLUTE AUTO 0.4 K/mm3 (0.0-0.8); MONOCYTES PERCENT AUTO 4.3 % (0.0-8.0); NEUTROPHILS ABSOLUTE AUTO 7.1 K/mm3 (1.8-7.7); NEUTROPHILS PERCENT AUTO 84.8 % (41.0-71.0); PLATELET COUNT,PLT 252 K/mm3 (150-400); RED BLOOD CELL COUNT 4.35 M/mm3 (4.10-5.30); WHITE BLOOD CELL COUNT,WBC 8.42 K/mm3 (3.9-11.3)
[2023-05-27 05:44] LABS: ANION GAP 11.2 (5-15); BUN/CREATININE RATIO 33.8 (14-18); CALCIUM 8.9 mg/dL (8.5-10.1); CREATININE 0.8 mg/dL (0.55-1.02); EST CRCL DRUG DOSING (CG) 50.05 mL/min; MAGNESIUM 2.1 mg/dL (1.8-2.4); POTASSIUM,K 4.2 mEq/L (3.5-5.1)
[2023-05-27] MEDS: Levothyroxine 100 MCG Tab PO SCH (06:16)
[2023-05-27 07:09] LABS: C-REACTIVE PROTEIN 31.2 mg/dL (<1.0)
[2023-05-27] MEDS: predniSONE 20 MG Tab PO SCH (07:59)
[2023-05-27] MEDS: Lisinopril 20 MG Tab PO SCH (08:48)
[2023-05-27] MEDS: Amiodarone 200 MG Tab PO SCH (08:52)
[2023-05-27] MEDS: amLODIPine 5 MG Tab PO SCH (08:52)
[2023-05-27] MEDS: Metoprolol Tartrate 25 MG Tab PO SCH ×2 (08:53→21:44)
[2023-05-27] MEDS: Sodium Chloride 0.9% 10 ML Syringe FLUSH SCH (08:54)
[2023-05-27] MEDS: Doxycycline 100 MG in Sodium Chloride 0.9% 100 ML IV SCH (08:56)
[2023-05-27] MEDS: Acetaminophen 325 MG Tab PO PRN (15:53)
[2023-05-27] MEDS: Rivaroxaban 10 MG Tab PO SCH (18:00)
[2023-05-27] MEDS: Doxycycline Monohydrate 100 MG Cap PO SCH (21:48)
[2023-05-27] MEDS: atorvaSTATin 20 MG Tab PO SCH (21:48)
[2023-05-27] MEDS: guaiFENesin 600 MG Tab.ER PO SCH (21:48)
[2023-05-28 05:51] LABS: BASOPHILS PERCENT AUTO 0.2 % (0.0-1.0); HEMATOCRIT 43.9 % (37.0-47.0); IMMATURE GRAN PERCENT AUTO 0.9 % (0.0-0.4); LYMPHOCYTES ABSOLUTE AUTO 1.2 K/mm3 (1.0-4.8); LYMPHOCYTES PERCENT AUTO 10.6 % (24.0-44.0); MEAN CORPUSCULAR HEMOGLOBIN 32.9 pg (28.0-32.0); MEAN CORPUSCULAR HGB CONC 34.2 g/dl (32.0-36.0); MEAN CORPUSCULAR VOLUME 96.3 fl (83.0-99.0); MEAN PLATELET VOLUME 9.1 fl (9.4-12.3); MONOCYTES ABSOLUTE AUTO 0.9 K/mm3 (0.0-0.8); MONOCYTES PERCENT AUTO 7.7 % (0.0-8.0); NEUTROPHILS PERCENT AUTO 80.6 % (41.0-71.0); PLATELET COUNT,PLT 306 K/mm3 (150-400); RED BLOOD CELL COUNT 4.56 M/mm3 (4.10-5.30); WHITE BLOOD CELL COUNT,WBC 11.21 K/mm3 (3.9-11.3)
[2023-05-28] MEDS: Levothyroxine 100 MCG Tab PO SCH (05:54)
[2023-05-28 06:32] LABS: ANION GAP 10.1 (5-15); CALCIUM 9.3 mg/dL (8.5-10.1); EST CRCL DRUG DOSING (CG) 40.04 mL/min; MAGNESIUM 2.1 mg/dL (1.8-2.4); POTASSIUM,K 4.1 mEq/L (3.5-5.1)
[2023-05-28 06:41] LABS: C-REACTIVE PROTEIN 17.2 mg/dL (<1.0)
[2023-05-28] MEDS: Acetaminophen 325 MG Tab PO PRN ×2 (07:56→13:30)
[2023-05-28] MEDS: predniSONE 20 MG Tab PO SCH (07:56)
[2023-05-28] MEDS: Lisinopril 20 MG Tab PO SCH (08:36)
[2023-05-28] MEDS: Metoprolol Tartrate 25 MG Tab PO SCH (08:40)
[2023-05-28] MEDS: amLODIPine 5 MG Tab PO SCH (08:40)
[2023-05-28] MEDS: Doxycycline Monohydrate 100 MG Cap PO SCH ×2 (08:40→16:49)
[2023-05-28] MEDS: guaiFENesin 600 MG Tab.ER PO SCH (08:42)
[2023-05-28] MEDS: Amiodarone 200 MG Tab PO SCH (08:42)
== END 2023-05-28 17:05 | disposition home or self-care (01) | DRG 190 ==
LOC: JD.ED 00:26 → JD.ICU 09:14 → INTOOBSV 09:14 → OBSVTOIN 05-26 08:12
PROVIDERS: ADMIT Emergency Medicine; ATTEND Emergency Medicine
DX: J43.9 Emphysema, unspecified (principal); J96.01 Acute respiratory failure with hypoxia; J40 Bronchitis, not specified as acute or chronic; J06.9 Acute upper respiratory infection, unspecified; R09.02 Hypoxemia; R53.1 Weakness; R32 Unspecified urinary incontinence; Z66 Do not resuscitate; R29.6 Repeated falls; M19.90 Unspecified osteoarthritis, unspecified site; Z20.822 Contact with and (suspected) exposure to COVID-19; I48.91 Unspecified atrial fibrillation; R51.9 Headache, unspecified; G89.29 Other chronic pain; Z79.01 Long term (current) use of anticoagulants; Z79.890 Hormone replacement therapy; I10 Essential (primary) hypertension; Z87.891 Personal history of nicotine dependence; E03.9 Hypothyroidism, unspecified; E78.00 Pure hypercholesterolemia, unspecified; Z79.899 Other long term (current) drug therapy; W18.30XA Fall on same level, unspecified, initial encounter
CPT/HCPCS: 36415; 71045; 71250; 80053; 81001; 83880; 84145; 84484; 85007; 85027; 86140; 87486; 87581; 87633; 87804 ×2; 93005; 94667; 97162; 99285; A9270 ×4; G0378 ×3; J3490; U0002; 80048; 83735; 85025; 94668; 97116-GP; J2930; J7512

== ENCOUNTER 2024-09-18 19:35 | Inpatient (IN) | payer BC, MEDICARE ==
[2024-09-18] MEDS ORDERED: Piperacillin/Tazobactam 4.5 GM in Sodium Chloride 0.9% 100 ML IV ONE (20:12)
[2024-09-18 20:22] LABS: BASOPHILS PERCENT AUTO 0.1 % (0.0-1.0); EOSINOPHILS PERCENT AUTO 0.3 % (0.0-6.0); HEMOGLOBIN 15.5 gm/dl (12.0-16.0); IMMATURE GRAN ABSOLUTE AUTO 0.04 K/mm3 (0.00-0.05); IMMATURE GRAN PERCENT AUTO 0.4 % (0.0-0.4); LYMPHOCYTES ABSOLUTE AUTO 1.1 K/mm3 (1.0-4.8); LYMPHOCYTES PERCENT AUTO 11.5 % (24.0-44.0); MEAN CORPUSCULAR HEMOGLOBIN 28.7 pg (28.0-32.0); MEAN CORPUSCULAR HGB CONC 31.6 g/dl (32.0-36.0); MEAN CORPUSCULAR VOLUME 90.7 fl (83.0-99.0); MEAN PLATELET VOLUME 10.6 fl (9.4-12.3); MONOCYTES ABSOLUTE AUTO 0.8 K/mm3 (0.0-0.8); MONOCYTES PERCENT AUTO 8.2 % (0.0-8.0); NEUTROPHILS ABSOLUTE AUTO 7.3 K/mm3 (1.8-7.7); NEUTROPHILS PERCENT AUTO 79.5 % (41.0-71.0); PLATELET COUNT,PLT 222 K/mm3 (150-400); WHITE BLOOD CELL COUNT,WBC 9.13 K/mm3 (3.9-11.3)
[2024-09-18 20:26] LABS: INR 1.26; PROTHROMBIN TIME 13.2 SECONDS (9.7-12.0)
[2024-09-18 20:27] LABS: PTT,PARTIAL THROMBOPLSTIN TIME 32.9 SECONDS (21.7-31.4)
[2024-09-18 20:32] LABS: A/G RATIO 1.1 (1-2); ALBUMIN 3.4 g/dl (3.4-5.0); ANION GAP 15.9 (5-15); BILIRUBIN TOTAL 1.6 mg/dL (0.2-1.0); BUN/CREATININE RATIO 22.5 (14-18); CALCIUM 9.8 mg/dL (8.5-10.1); CREATININE 1.2 mg/dL (0.55-1.02); EST CRCL DRUG DOSING (CG) 34.21 mL/min; MAGNESIUM 1.8 mg/dL (1.8-2.4); POTASSIUM,K 3.9 mEq/L (3.5-5.1); PROTEIN TOTAL,TP 6.6 g/dl (6.4-8.2)
[2024-09-18] MEDS: Sodium Chloride 0.9% 500 ML IV ONE (20:44)
[2024-09-18] MEDS: Diltiazem 25 MG/5 ML SDV IVPUSH ONE (20:44)
[2024-09-18 20:45] LABS: LACTIC ACID 2.7 mmol/L (0.4-2.0)
[2024-09-18] MEDS: Piperacillin/Tazobactam 4.5 GM in Water For Injection, Sterile 20 ML IV ONE (21:14)
[2024-09-18] MEDS: VANCOmycin 1 GM in Sodium Chloride 0.9% 250 ML IV ONE (21:15)
[2024-09-18] MEDS: Sodium Chloride 0.9% 10 ML Syringe FLUSH PRN (21:15)
[2024-09-18] MEDS ORDERED: Diltiazem 125 MG in Sodium Chloride 0.9% 100 ML IV SCH (22:30)
[2024-09-18] MEDS: Furosemide 40 MG/4 ML VIAL IVPUSH ONE (22:55)
[2024-09-18] MEDS ORDERED: Acetaminophen 325 MG Tab PO PRN (23:04)
[2024-09-18] MEDS ORDERED: Nitroglycerin/D5W 25 MG/250 ML BOTTLE IV SCH (23:15)
[2024-09-18 23:49] LABS: APPEARANCE,URINE SLT CLOUDY (Clear); BILIRUBIN,URINE NEGATIVE (Negative); COLOR,URINE YELLOW (Yellow); GLUCOSE,URINE NEGATIVE (Negative); KETONES,URINE NEGATIVE (Negative); LEUKOCYTE ESTERASE,URINE 1+ (Negative); NITRITE,URINE POSITIVE (Negative); OCCULT BLOOD,URINE TRACE-INTACT (Negative); PH,URINE 5.5 (5.0-8.0); PROTEIN,URINE NEGATIVE (Negative); UROBILINOGEN,URINE 0.2 (0.2-1.0)
[2024-09-19] MEDS: Cefepime 2 GM in Water For Injection, Sterile 20 ML IV SCH (00:06)
[2024-09-19 00:34] LABS: BICARBONATE,ARTERIAL 25.5 meq/L (22.0-26.0); O2 SATURATION ARTERIAL 98.4 % (96.0-97.0); PCO2 ARTERIAL 45.8 mmHg (35.0-45.0)
[2024-09-19 00:35] LABS: BASE EXCESS ARTERIAL 0.2 (-2-2.0)
[2024-09-19 00:44] LABS: EPITHELIAL CELLS,URINE 0-5 /hpf (0-5); RBC,URINE 0-5 /hpf (0-5); WBC CLUMPS,URINE FEW /hpf (NOT SEEN)
[2024-09-19 00:45] LABS: BACTERIA,URINE MODERATE /hpf (FEW); MUCUS,URINE NOT SEEN /hpf (FEW)
[2024-09-19 03:14] LABS: BASOPHILS PERCENT AUTO 0.1 % (0.0-1.0); EOSINOPHILS PERCENT AUTO 0.1 % (0.0-6.0); HEMATOCRIT 47.7 % (37.0-47.0); HEMOGLOBIN 15.3 gm/dl (12.0-16.0); IMMATURE GRAN ABSOLUTE AUTO 0.04 K/mm3 (0.00-0.05); IMMATURE GRAN PERCENT AUTO 0.5 % (0.0-0.4); LYMPHOCYTES ABSOLUTE AUTO 0.2 K/mm3 (1.0-4.8); LYMPHOCYTES PERCENT AUTO 2.6 % (24.0-44.0); MEAN CORPUSCULAR HGB CONC 32.1 g/dl (32.0-36.0); MEAN CORPUSCULAR VOLUME 90.3 fl (83.0-99.0); MEAN PLATELET VOLUME 10.4 fl (9.4-12.3); MONOCYTES ABSOLUTE AUTO 0.3 K/mm3 (0.0-0.8); MONOCYTES PERCENT AUTO 3.8 % (0.0-8.0); NEUTROPHILS ABSOLUTE AUTO 7.4 K/mm3 (1.8-7.7); NEUTROPHILS PERCENT AUTO 92.9 % (41.0-71.0); PLATELET COUNT,PLT 150 K/mm3 (150-400); RED BLOOD CELL COUNT 5.28 M/mm3 (4.10-5.30); WHITE BLOOD CELL COUNT,WBC 7.99 K/mm3 (3.9-11.3)
[2024-09-19 03:37] LABS: ALBUMIN 3.2 g/dl (3.4-5.0); ANION GAP 14.9 (5-15); BILIRUBIN TOTAL 1.9 mg/dL (0.2-1.0); BUN/CREATININE RATIO 22.7 (14-18); C-REACTIVE PROTEIN 1.21 mg/dL (<0.30); CREATININE 1.1 mg/dL (0.55-1.02); EST CRCL DRUG DOSING (CG) 37.32 mL/min; POTASSIUM,K 3.9 mEq/L (3.5-5.1); PROTEIN TOTAL,TP 6.3 g/dl (6.4-8.2)
[2024-09-19] MEDS: Furosemide 40 MG/4 ML VIAL IVPUSH SCH (05:46)
[2024-09-19] MEDS: Nystatin Topical Powder 15 GM Bottle TOP PRN (05:48)
[2024-09-19] MEDS ORDERED: Cefepime 2 GM in Sodium Chloride 0.9% 50 ML IV SCH (08:30)
[2024-09-19 11:15] LABS: TSH 2.763 uIU/mL (0.358-3.74)
[2024-09-19] MEDS: Cefepime 2 GM Vial IVPUSH SCH (12:15)
[2024-09-19] MEDS: Amiodarone 150 MG/100 ML 100 ML IV ONE (19:00)
[2024-09-19] MEDS: Amiodarone 360 MG/200 ML 360 MG/200 ML BAG IV ONE (19:12)
[2024-09-19] MEDS: atorvaSTATin 20 MG Tab PO SCH (20:02)
[2024-09-20] MEDS: Amiodarone 360 MG/200 ML 540 MG/300 ML BAG IV ONE (00:49)
[2024-09-20] MEDS: Amiodarone 360 MG/200 ML 200 ML IV SCH (01:00)
[2024-09-20 05:49] LABS: BASOPHILS PERCENT AUTO 0.3 % (0.0-1.0); EOSINOPHILS ABSOLUTE AUTO 0.1 K/mm3 (0.0-0.4); EOSINOPHILS PERCENT AUTO 1.2 % (0.0-6.0); HEMATOCRIT 42.2 % (37.0-47.0); IMMATURE GRAN ABSOLUTE AUTO 0.04 K/mm3 (0.00-0.05); IMMATURE GRAN PERCENT AUTO 0.6 % (0.0-0.4); LYMPHOCYTES ABSOLUTE AUTO 0.8 K/mm3 (1.0-4.8); LYMPHOCYTES PERCENT AUTO 11.6 % (24.0-44.0); MEAN CORPUSCULAR HEMOGLOBIN 28.9 pg (28.0-32.0); MEAN CORPUSCULAR HGB CONC 31.8 g/dl (32.0-36.0); MEAN CORPUSCULAR VOLUME 90.9 fl (83.0-99.0); MEAN PLATELET VOLUME 9.9 fl (9.4-12.3); MONOCYTES ABSOLUTE AUTO 0.8 K/mm3 (0.0-0.8); NEUTROPHILS ABSOLUTE AUTO 5.2 K/mm3 (1.8-7.7); NEUTROPHILS PERCENT AUTO 74.3 % (41.0-71.0); PLATELET COUNT,PLT 199 K/mm3 (150-400); RED BLOOD CELL COUNT 4.64 M/mm3 (4.10-5.30); WHITE BLOOD CELL COUNT,WBC 6.92 K/mm3 (3.9-11.3)
[2024-09-20 05:53] LABS: HEMOGLOBIN 13.4 gm/dl (12.0-16.0)
[2024-09-20 05:58] LABS: A/G RATIO 0.9 (1-2); ALBUMIN 2.4 g/dl (3.4-5.0); ANION GAP 8.6 (5-15); BILIRUBIN TOTAL 1.1 mg/dL (0.2-1.0); BUN/CREATININE RATIO 25.5 (14-18); C-REACTIVE PROTEIN 5.73 mg/dL (<0.30); CALCIUM 8.4 mg/dL (8.5-10.1); CREATININE 1.1 mg/dL (0.55-1.02); EST CRCL DRUG DOSING (CG) 37.32 mL/min; POTASSIUM,K 3.6 mEq/L (3.5-5.1); PROTEIN TOTAL,TP 5.2 g/dl (6.4-8.2)
[2024-09-20] MEDS: Levothyroxine 100 MCG Tab PO SCH (06:18)
[2024-09-20] MEDS: Rivaroxaban 10 MG Tab PO SCH (08:18)
[2024-09-20] MEDS: Potassium Chloride 20 MEQ Tab.ER PO ONE (08:18)
[2024-09-20] MEDS ORDERED: Sennosides/Docusate Sodium 50-8.6 MG Tab PO PRN (10:15)
[2024-09-20] MEDS: Sennosides 8.6 MG Tab PO SCH (10:54)
[2024-09-21] MEDS ORDERED: Furosemide 40 MG/4 ML VIAL IVPUSH SCH (09:00)
== END 2024-09-20 16:35 | DRG 871 ==
LOC: JD.ED 19:35 → JD.ICU 22:40
PROVIDERS: ADMIT Family Medicine; ATTEND Student in an Organized Health Care Education/Training Program
PROC: 3E03329 Introduction of Other Anti-infective into Peripheral Vein, Percutaneous Approach (ICD-10-PCS; 2024-09-18)
PROC: 5A09357 Assistance with Respiratory Ventilation, Less than 24 Consecutive Hours, Continuous Positive Airway Pressure (ICD-10-PCS; principal; 2024-09-19)
PROC: 4A033R1 Measurement of Arterial Saturation, Peripheral, Percutaneous Approach (ICD-10-PCS; 2024-09-19)
DX: A41.9 Sepsis, unspecified organism (principal); I50.9 Heart failure, unspecified; I48.91 Unspecified atrial fibrillation; R09.02 Hypoxemia; R26.89 Other abnormalities of gait and mobility; R74.02 Elevation of levels of lactic acid dehydrogenase [LDH]; L03.119 Cellulitis of unspecified part of limb; I50.23 Acute on chronic systolic (congestive) heart failure; Z79.890 Hormone replacement therapy; J96.01 Acute respiratory failure with hypoxia; L03.115 Cellulitis of right lower limb; L03.116 Cellulitis of left lower limb; I48.20 Chronic atrial fibrillation, unspecified; E87.20 Acidosis, unspecified; N39.0 Urinary tract infection, site not specified; I11.0 Hypertensive heart disease with heart failure; R65.20 Severe sepsis without septic shock; Z66 Do not resuscitate; E78.00 Pure hypercholesterolemia, unspecified; M19.90 Unspecified osteoarthritis, unspecified site; E03.9 Hypothyroidism, unspecified; I87.2 Venous insufficiency (chronic) (peripheral); E78.5 Hyperlipidemia, unspecified; I08.3 Combined rheumatic disorders of mitral, aortic and tricuspid valves; S30.811A Abrasion of abdominal wall, initial encounter; K59.00 Constipation, unspecified; Z79.899 Other long term (current) drug therapy; Z79.01 Long term (current) use of anticoagulants; Z98.49 Cataract extraction status, unspecified eye; Z98.890 Other specified postprocedural states; X58.XXXA Exposure to other specified factors, initial encounter
CPT/HCPCS: 36415; 71045; 80053; 82550; 83605; 83735; 83880; 84443; 84484; 85025; 85610; 85730; 87040 ×2; 87428; 93005; 93970; 96365; 96375; 99285; J2543; J3490; J7030; J7050; 36600; 81001; 82803; 86140; 87086; 93306; 94660; 97161-GP; 97530-GP; A9270-GY; J0282; J0692; J1940; J3475